=== PATIENT | male | born 1990 | race Caucasian/White ===

== ENCOUNTER 2024-03-19 17:42 | Emergency (ER) | payer BC, SELFPAY ==
[2024-03-19 18:25] VITALS: BP 144/76; PULSE 58; RESP 20; TEMP 36; O2SAT 100
--- NOTE | 2024-03-19 18:35 | ED.WOUNDLAC ---
HPI - Wound/Laceration General Chief Complaint: Wound/Laceration <ARY Renae Last Filed: 03/19/24 19:08> Stated Complaint: R leg laceration <ARY Renae Last Filed: 03/19/24 19:08> Time Seen by Provider: 03/19/24 18:30 <ARY Renae Last Filed: 03/19/24 19:08> Focused HPI: Patient is a 33-year-old male who presents the ED with report of a laceration to his right lower right sims. Patient reports he was climbing up onto a dumpster to throw something away when he slipped and sustained a laceration to his right lower sims. Tetanus unknown. No other injuries. Able to ambulate. Denies numbness or tingling. GENERAL: Well-appearing, well-nourished, and in no acute distress. HEAD: Normocephalic, atraumatic. CHEST: Clear to auscultation. ?No respiratory distress. HEART: Regular rate and rhythm.? MSK: No limited ROM of right leg or foot. SKIN: Approximately 3 x 1 cm mildly gaping laceration to lower sims on right leg. No active bleeding. Sensation intact. NEURO: ?Alert and oriented x3. Patient screened in triage and initial orders placed.? ?Additional care and disposition to be based upon?diagnostic testing and treatment. <ARY Renae Last Filed: 03/19/24 19:08> Source: patient <ARY Renae Last Filed: 03/19/24 19:08> Mode of arrival: ambulatory <ARY Renae Last Filed: 03/19/24 19:08> Limitations: no limitations <ARY Renae Last Filed: 03/19/24 19:08> History of Present Illness HPI narrative: <ARY Renae Last Filed: 03/19/24 19:08> Related Data Allergies/Adverse Reactions: Allergies Allergy/AdvReac Type Severity Reaction Status Date / Time No Known Allergies Allergy Verified 03/19/24 17:45 <Yasmin Avina PA-C - Last Filed: 03/19/24 19:08> Review of Systems Review of Systems: <Yasmin Avina PA-C - Last Filed: 03/19/24 19:08> CONSTITUTIONAL: Denies fever SKIN: Reports laceration NEUROLOGIC: Denies numbness <Frances Valencia PA-C - Last Filed: 03/19/24 21:33> All systems reviewed & are unremarkable except as noted in HPI and below <Frances Valencia PA-C - Last Filed: 03/19/24 21:33> PMFSH Past Medical History Medical History: Medical History (Updated 03/19/24 @ 21:32 by Frances Valencia PA-C) No active medical problems <Yasmin Avina PA-C - Last Filed: 03/19/24 19:08> Social History Social History: Social History Smoking status: Never smoker <Yasmin Avina PA-C - Last Filed: 03/19/24 19:08> Exam Narrative: GENERAL: Well-appearing, well-nourished, and in no acute distress. HEAD: Normocephalic, atraumatic. EYES: EOMI. EXTREMITIES: Normal range of motion. No edema. 3 cm linear laceration in the subcutaneous tissue right lower leg SKIN: Warm, dry, no rash. NEURO: No focal deficits. Alert and oriented x3. PSYCH: Normal mood and affect <Frances Valencia PA-C - Last Filed: 03/19/24 21:33> Course Course Emergency Course: Patient educated on wound care <Frances Valencia PA-C - Last Filed: 03/19/24 21:33> Vital Signs Vital signs: Vital Signs Temperature 96.8 F L 03/19/24 18:25 Pulse Rate 58 L 03/19/24 18:25 Respiratory Rate 20 03/19/24 18:25 Blood Pressure 144/76 H 03/19/24 18:25 Pulse Oximetry 100 03/19/24 18:25 Temperature 98.6 F 03/19/24 20:09 Pulse Rate 66 03/19/24 20:09 Respiratory Rate 17 03/19/24 20:09 Blood Pressure 138/96 H 03/19/24 20:09 Pulse Oximetry 99 03/19/24 20:09 <Yasmin Avina PA-C - Last Filed: 03/19/24 19:08> Vital Signs Temperature 96.8 F L 03/19/24 18:25 Pulse Rate 58 L 03/19/24 18:25 Respiratory Rate 20 03/19/24 18:25 Blood Pressure 144/76 H 03/19/24 18:25 Pulse Oximetry 100 03/19/24 18:25
[2024-03-19] MEDS: TETANUS,DIPHTHERIA,AC PERTUSSIS ADULT (0.5 ML) BOOSTRIX IM (20:04)
[2024-03-19 20:09] VITALS: BP 138/96; PULSE 66; RESP 17; TEMP 37; O2SAT 99
== END 2024-03-19 21:36 | disposition home or self-care (01) ==
PROVIDERS: Emergency Provider Physician Assistant
DX: S81.811A Laceration without foreign body, right lower leg, initial encounter (principal); Z23 Encounter for immunization; W18.49XA Other slipping, tripping and stumbling without falling, initial encounter
CPT/HCPCS: 12001; 90471; 90715; 99282